=== PATIENT | female | born 1945 | race Caucasian/White ===

== ENCOUNTER 2016-11-24 09:49 | Outpatient (CLI) | payer MEDICARE, BC ==
--- NOTE | 2016-11-24 12:34 | MMO ---
BILATERAL SCREENING MAMMOGRAM: INDICATIONS: Annual exam. COMPARISON: 11/11/2014 FINDINGS: Interpretation of this examination was assisted with computer aided detection. There are scattered fibroglandular elements bilaterally. There are benign appearing calcifications bilaterally. No new suspicious mass, cluster of microcalcification, or area of architectural distortion is eviden t. IMPRESSION: BI-RADS category 2: Benign. Recommended routine annual mammographic screening. POS: [facility]
== END 2016-11-24 09:50 | disposition home or self-care (01) ==
LOC: MAMMO 09:49
PROVIDERS: ATTEND Obstetrics & Gynecology
DX: Z12.31 Encounter for screening mammogram for malignant neoplasm of breast (principal)
CPT/HCPCS: 77067; G0202

== ENCOUNTER 2018-05-04 15:24 | Outpatient (CLI) | payer MEDICARE, BC ==
[2018-05-04 16:53] LABS: Hemoglobin 12.7 g/dL (12.0-16.0); Mean Corpuscular HGB CONC 32.8 g/dL (32.0-36.0); Mean Corpuscular Hemoglobin 30.2 pg (27.0-31.0); Mean Platelet Volume 6.8 fL (7.4-10.4); Platelet Count 285 thou/uL (130-400); RBC Distribution Width 11.8 % (11.5-14.5); Red Blood Cell (RBC) Count 4.19 mill/uL (4.20-5.40); White Blood Cell (WBC) Count 7.4 thou/uL (4.8-10.8)
[2018-05-04 17:00] LABS: Anion Gap 11 mmol/L (10-20); BUN (Urea Nitrogen) 18 mg/dL (9.8-20.1); Calc. Creatinine Clearance 0 mL/min (70-130); Calcium 9.7 mg/dL (7.8-10.44); Carbon Dioxide 30 mmol/L (23-31); Chloride 103 mmol/L (98-107); Estimated GFR-MDRD 57; Glucose 102 mg/dL (83-110); Potassium 3.7 mmol/L (3.5-5.1); Sodium 140 mmol/L (136-145)
--- NOTE | 2018-05-05 16:45 | EKG ---
Test Reason : Blood Pressure : / mmHG Vent. Rate : 062 BPM Atrial Rate : 062 BPM P-R Int : 172 ms QRS Dur : 084 ms QT Int : 456 ms P-R-T Axes : 031 058 074 degrees QTc Int : 462 ms Normal sinus rhythm Normal ECG When compared with ECG of 07-OCT-2011 08:18, T wave amplitude has decreased in Anterior leads Confirmed by DR. Brooke GONZALEZ ([id number]) on 05/05/2018 4:45:36 PM Referred By: REINA Confirmed By:DR. Brooke GONZALEZ
== END 2018-05-04 15:25 | disposition home or self-care (01) ==
LOC: LABBT 15:24
PROVIDERS: ATTEND Surgery
DX: Z01.818 Encounter for other preprocedural examination (principal); K40.90 Unilateral inguinal hernia, without obstruction or gangrene, not specified as recurrent
CPT/HCPCS: 80048; 85027; 93005; 93010

== ENCOUNTER 2018-05-10 09:47 | Day surgery (SDC) | payer MEDICARE, BC ==
[2018-05-04 15:39] VITALS: BMI 22.8
[2018-05-10] MEDS ORDERED: Scopolamine 1.5 mg/72 hour Patch ONE (10:29)
[2018-05-10] MEDS ORDERED: Fentanyl 100 MCG/2 ML VIAL ONE (11:41)
[2018-05-10] MEDS ORDERED: Bupivacaine/Epinephrine 0.25% 30 ML VIAL ONE (12:10)
[2018-05-10] MEDS ORDERED: Promethazine HCl 25 MG/ML VIAL ONE (12:12)
--- NOTE | 2018-05-10 13:55 | OP ---
DATE OF PROCEDURE: 05/10/2018 PREOPERATIVE DIAGNOSIS: Right inguinal hernia. POSTOPERATIVE DIAGNOSIS: Right inguinal hernia. PROCEDURE PERFORMED: Da Romana laparoscopic right inguinal hernia repair with mesh, 3DMax large. ANESTHESIA: General. ESTIMATED BLOOD LOSS: Minimal. COMPLICATIONS: None. SPECIMEN: None. FINDINGS: Right inguinal hernia. DESCRIPTION OF PROCEDURE: The patient was taken to the operating room and laid supine on the operating room table. After general anesthetic was obtained, a Ruth was placed. The abdomen was shaved, prepped, and draped in a sterile fashion. A curved incision was made above the umbilicus. Cautery was dissected down to and score the fascia. Abdominal cavity was entered bluntly using a Desiree clamp. Holding stitch of PDS was placed on each side of the fascia, and an 11 mm trocar was placed. High-flow pneumoperitoneum was obtained. Left and right abdominal 8-mm robot assist ports were placed under direct visualization. The patient placed in Trendelenburg position, all ports were docked to the robot. The peritoneum was taken down in the right groin. There was a right inguinal hernia. A 3DMax large was brought into the sterile field and placed into the abdomen. There was no left inguinal hernia. The peritoneum was taken down exposing the preperitoneal space, which was bluntly dissected to pubic tubercle medially, anterior superior iliac crest laterally. The shelving edge of inguinal ligament was fully exposed. The inguinal hernia sac was dissected back away from the cord round ligament back up on to the peritoneum. There was a small femoral hernia that was reduced as well. The round ligament was then cauterized and cut. 3DMax large mesh, the M labeled medial aspect was placed over pubic tubercle medially, the mesh was laid out laterally to cover the femoral, direct and indirect areas. The mesh was sewn medially to the pubic tubercle lateral to the posterior fascia using Vicryl suture. The peritoneum was reapproximated using running 3-0 Stratafix. No bleeding. No injury to any intraabdominal structures. All needles were removed from the abdomen. All port sites were infiltrated using local anesthetic. All ports were removed under camera visualization, impairments let down. PDS was used to close the fascial defect above the umbilicus. All incisions were irrigated and closed using 4-0 Monocryl. The patient was sent to Recovery in stable condition. All instrument counts, needle counts, and lap counts were correct. Job ID: [id number]
== END 2018-05-10 15:15 | disposition home or self-care (01) ==
LOC: SDC 09:47 → EDSTATUS 15:17
PROVIDERS: ATTEND Surgery
PROC: 0YU54JZ Supplement Right Inguinal Region with Synthetic Substitute, Percutaneous Endoscopic Approach (ICD-10-PCS; principal; 2018-05-10)
DX: K40.90 Unilateral inguinal hernia, without obstruction or gangrene, not specified as recurrent (principal); K41.90 Unilateral femoral hernia, without obstruction or gangrene, not specified as recurrent; K21.9 Gastro-esophageal reflux disease without esophagitis; M19.90 Unspecified osteoarthritis, unspecified site; I11.9 Hypertensive heart disease without heart failure; F32.9 Major depressive disorder, single episode, unspecified; M85.80 Other specified disorders of bone density and structure, unspecified site; Z79.82 Long term (current) use of aspirin; Z79.899 Other long term (current) drug therapy; Z91.041 Radiographic dye allergy status; Z91.048 Other nonmedicinal substance allergy status; Z95.1 Presence of aortocoronary bypass graft
CPT/HCPCS: C1781; J0131; J2550; J3010